=== PATIENT | male | born 1960 | race Caucasian/White ===

== ENCOUNTER 2016-04-09 12:38 | Emergency (ER) | payer MEDICARE, OTHER ==
[~2016-04-09] VITALS: Ht 167.6 cm; Wt 73.9 kg
--- NOTE | 2016-04-09 12:43 | NUR ---
PT PLACED IN BED 1 BY EMS
--- NOTE | 2016-04-09 12:44 | NUR ---
Patient being evaluated by physician at bedside.
[2016-04-09 12:45] VITALS: BP 131/79
--- NOTE | 2016-04-09 12:50 | NUR ---
PT FOR CT VIA [facility], PT AAO
--- NOTE | 2016-04-09 13:11 | NUR ---
PT BACK FROM CT AAO, VIA [facility]
--- NOTE | 2016-04-09 13:11 | NUR ---
BIBA S/P [facility]ANICAL FALL AT [facility], SUSTAINING LACERATION TO FOREHEAD AND ABRASIONS TO BRIDGE OF NOSE AND RIGHT ELBOW. PT AAO,NOTED ALSO PT WITH GT AND COLOSTOMY DRAINING TO A BROWNISH OUTPUT, SKIN WARM TO TOUCH RESP. EVEN AND UNLABORED, PT WITH NECK BRACE.
[2016-04-09] MEDS ORDERED: LIDOCAINE 1% 500 MG/50 ML VIAL INJ ONE (13:35)
--- NOTE | 2016-04-09 14:43 | NUR ---
PT LOREO, PA SUTURING FOREHEAD AT THIS TIME
--- NOTE | 2016-04-09 15:17 | NUR ---
CALL PLACE TO [facility] EXTENDED [phone], REPORT GIVEN TO QUYNH, MADE AWARE PT HAD 5 SUTURE, PT AAO.
--- NOTE | 2016-04-09 15:20 | NUR ---
DR. GHOTRA AT BEDSIDE
--- NOTE | 2016-04-09 16:08 | NUR ---
PT AAO, DRESSING ON FOREHEAD INTACT, NO BLEEDING NOTED.
--- NOTE | 2016-04-09 17:00 | NUR ---
PICKED UP BY AMBULANCE IN GOOD CONDITION, DRESSING ON FOREHEAD INTACT,ABRASION ON BRIDGE OF NOSE INTACT, PT AAO, CLAIMED THANK YOU Patient discharged with v/s stable. Written and verbal after care instructions given and explained. Patient alert, oriented and verbalized understanding of instructions. All questions addressed prior to discharge. ID band removed. Patient advised to follow up with PMD. Rx of MOTRIN AND BACTRIM given TO AMBULANCE . Patient educated on indication of medication including possible reaction and side effects. Opportunity to ask questions provided and answered.
[2016-04-09 17:02] VITALS: BP 121/72
== END 2016-04-09 17:00 | disposition home or self-care (01) ==
LOC: MED 12:38
DX: S01.81XA Laceration without foreign body of other part of head, initial encounter (principal); Z88.6 Allergy status to analgesic agent; Z88.0 Allergy status to penicillin; W05.0XXA Fall from non-moving wheelchair, initial encounter; Y93.89 Activity, other specified; Y92.89 Other specified places as the place of occurrence of the external cause; Y99.8 Other external cause status
CPT/HCPCS: 12013; 70450; 72125; 90471; 90715; 99284; J2001

== ENCOUNTER 2022-02-01 09:00 | Emergency (ER) | payer MEDICARE, OTHER ==
[~2022-02-01] VITALS: Ht 177.8 cm; Wt 86.2 kg
--- NOTE | 2022-02-01 09:12 | NUR ---
PT BIB [facility] FROM [facility] IN FULL ARREST. PT DNR WITH COMFORT MEASURE PER POL. PT MOVED TO BED 10. PEA ON MONITOR. TIME OF [address] CHAWLA
--- NOTE | 2022-02-01 09:13 | NUR ---
ATTEMPTED TO CALL MOTHER AND COUSIN 2 TIMES VOICE MESSAGES LEFT.
--- NOTE | 2022-02-01 09:20 | NUR ---
SPOKE TO COUSIN WHO IS ON EMERGENCY CONTACT IRENE HOWARD MADE AWARE OF PASSING, IRENE IS ATTEMPTING TO GET A HOLD OF MOTHER LEANNA AT THIS TIME
--- NOTE | 2022-02-01 09:30 | NUR ---
SPOKE TO [facility] REF NUMBER [id number]
--- NOTE | 2022-02-01 09:35 | NUR ---
ATTEMPTED TO CONTACT [facility] NO DR IS [facility] [employer] PCP IS DR VIKY [facility] IS CLOSED AND UNABLE TO CONTACT
--- NOTE | 2022-02-01 09:35 | NUR ---
CALLED [facility] OFFICE STATES OFFICER WILL CONTACT ER
--- NOTE | 2022-02-01 10:12 | NUR ---
PT CLEARED FROM [facility]
--- NOTE | 2022-02-01 10:47 | NUR ---
SPOKE TO [facility] STATES WILL CALL WITH ETA FOR [facility] [employer] [facility]
--- NOTE | 2022-02-01 10:48 | NUR ---
SPOKE TO IRENE WHO STATES IS DRIVING TO MOTHER'S HOUSE TO ATTEMPT TO GET A HOLD OF HER. LEFT ANOTHER MESSAGE FOR MOTHER ON PHONE WITHOUT CALL BACK
--- NOTE | 2022-02-01 10:51 | NUR ---
JENY FAXED TO [facility] PER REQUEST
--- NOTE | 2022-02-01 11:23 | NUR ---
PT ONLY BELONGINGS IS [facility]
--- NOTE | 2022-02-01 11:32 | NUR ---
markel from mortuary updated on status of body at this time and requested release of body to [facility].
--- NOTE | 2022-02-01 12:09 | NUR ---
spoke to mother, kimmy made aware of passing and home status
--- NOTE | 2022-02-01 12:55 | NUR ---
pt body picked up at this time
== END 2022-02-01 09:01 ==
LOC: MED 09:00
DX: R09.2 Respiratory arrest (principal)
CPT/HCPCS: 99291